=== PATIENT | male | born 1950 | race Caucasian/White ===

== ENCOUNTER 2021-10-22 13:43 | Emergency (ER) | payer OTHER ==
[2021-10-22 14:03] VITALS: RESP 18; TEMP 99.3; BMI 28.0
[2021-10-22] MEDS ORDERED: SODIUM CHLORIDE 0.9% 500 ML INFUS.BAG IV ONE (14:31)
[2021-10-22] MEDS ORDERED: ACETAMINOPHEN 1000 MG/100 ML BAG IVPB ONE (14:31)
[2021-10-22] MEDS ORDERED: ACETAMINOPHEN INJECTION 100 ML IVPB ONE (15:29)
[2021-10-22 19:33] LABS: BASO % 0.6 % (0-2.0); EOS % 0.2 % (0-4.5); HEMATOCRIT 39.7 % (35.4-49); HEMOGLOBIN 13.4 GM/dL (11.7-16.9); LYMPH % 11.3 % (8-40); MCH 29.1 pg (25.7-33.7); MCHC 33.8 g/dl (32.0-35.9); MEAN CELL VOLUME 86.2 fl (80-96); MEAN PLT VOLUME 6.6 fl (7.5-11.1); MONO % 2.2 % (3.8-10.2); NEUT % 85.7 % (42.8-82.8); PLATELET COUNT 117 10^3/uL (134-434); RBC 4.61 M/mm3 (4.00-5.60); RDW 14.6 % (11.9-15.9); WHITE BLOOD COUNT 7.2 K/mm3 (4.0-10.0)
[2021-10-22 20:01] VITALS: BP 146/85; PULSE 112
[2021-10-22 20:01] LABS: CALCIUM 8.8 mg/dL (8.5-10.1)
[2021-10-22 20:02] LABS: ALBUMIN 3.9 g/dl (3.4-5.0); BLOOD UREA NITROGEN 17.8 mg/dL (7-18)
[2021-10-22 20:06] LABS: TOT PROT 6.4 g/dl (6.4-8.2)
[2021-10-22 20:07] LABS: BILIRUBIN,TOTAL 1.8 mg/dL (0.2-1)
== END 2021-10-22 20:34 | disposition left against medical advice (07) ==
LOC: JER 13:43
DX: R42 Dizziness and giddiness (principal)
CPT/HCPCS: 36415; 71046-TC-FY; 80053; 85025; 93005; 93010; 99285-25

== ENCOUNTER 2024-01-09 11:27 | Emergency (ER) | payer OTHER ==
[2024-01-09 11:38] VITALS: BP 133/76; PULSE 63; RESP 18; TEMP 97.2; BMI 28.8
[2024-01-09 12:14] LABS: HEMATOCRIT 38.1 % (35.4-49); HEMOGLOBIN 12.5 G/dL (11.7-16.9); MCHC 32.7 g/dl (32.0-35.9); MEAN CELL VOLUME 91.6 fl (80-96); PLATELET COUNT 103.4 10^3/uL (134-434); RBC 4.16 10^6/uL (4.00-5.60); RDW 14.1 % (11.9-15.9); WHITE BLOOD COUNT 5.3 10^3/uL (4.0-10.8)
[2024-01-09 12:17] LABS: PLATELET ESTIMATE DECREASED
[2024-01-09 12:19] LABS: ALBUMIN 4.2 g/dl (3.4-5.0); BILIRUBIN,TOTAL 0.5 mg/dl (0.2-1); CALCIUM 9.1 mg/dl (8.5-10.1); CREATININE 1.2 mg/dl (0.6-1.3); POTASSIUM 4.6 mmol/L (3.5-5.1); TOT PROT 6.4 g/dl (6.4-8.2)
[2024-01-09 15:03] LABS: HIV INTERPRETATION NEGATIVE (NEGATIVE)
== END 2024-01-09 13:04 | disposition home or self-care (01) ==
LOC: FER 11:27
DX: R42 Dizziness and giddiness (principal)
CPT/HCPCS: 36415; 80053; 84484; 85025; 86803; 87389; 93005; 99284-25